=== PATIENT | female | born 1975 | race Caucasian/White ===

== ENCOUNTER 2019-01-21 23:28 | Emergency (ER) | payer BC, SELFPAY ==
[2019-01-21 23:29] VITALS: BP 158/90; PULSE 125; RESP 14; TEMP 36.8; O2SAT 94; BMI 34.6
--- NOTE | 2019-01-21 23:46 | EKG12_ITS ---
Test Reason : SUBSTANCE ABUSE Blood Pressure : / mmHG Vent. Rate : 116 BPM Atrial Rate : 116 BPM P-R Int : 142 ms QRS Dur : 074 ms QT Int : 344 ms P-R-T Axes : 049 -10 043 degrees QTc Int : 478 ms Sinus tachycardia Moderate voltage criteria for LVH, may be normal variant Borderline ECG Confirmed by KEIRA STARKS, NIMESH ([id number]), editorial project manager ZARA CARIAS ([id number]) on 01/24/2019 1:23:55 PM Referred By: EUGENIO Confirmed By:NIMESH CROCKETT MD
--- NOTE | 2019-01-21 23:48 | ED.DCSUM_ITS ---
History of Present Illness Chief Complaint: Substance Abuse Informant: Patient Narrative: EMS brings this patient in after she was apparently walking in traffic on a Wednesday night. Patient states she does not remember any of this, and is not suicidal. She remembers going to [employer] to buy a new headlight for her car. To EMS and nursing she initially denied using any drugs tonight, but she states now she remembers using methamphetamine by IV tonight, prior to going out. She does not remember a lot however. She does not remember drinking any alcohol or using any other substances. - Past Medical History (1) Endometriosis Status: Resolved Past Medical History - Allergies and Home Meds Allergies/Adverse Reactions: Allergies No Known Allergies Allergy (Verified 01/21/19 23:33) Primary Care Physician: Radha Rios NP-C [ALLIED HEALTH PROFESSIONAL] - Surgical History: hysterectomy, - - Laparoscopy Smoking Status: Current every day smoker Alcohol: None Drugs: - - IV drug use, methamphetamine Review of Systems General: Denies: Chills, Fever, Sweats Eyes: Denies: Visual changes - bilaterally, Diplopia ENT: Denies: Rhinorrhea, Sore throat Cardiovascular: Denies: Chest pain, Palpitations Respiratory: Denies: Dyspnea, Cough, Dyspnea on exertion Gastrointestinal: Reports: Nausea. Denies: Abdominal pain, Vomiting, Diarrhea, Melena, Hematochezia Genitourinary: Denies: Dysuria, Hematuria, Frequency Musculoskeletal: Denies: Back pain, Extremity Pain Skin: Denies: Rash, Wounds Neurological: Denies: Headache, Weakness, Numbness Physical Exam Vital Signs/Narrative: Vital Signs Temp Pulse Resp BP Pulse Ox 01/21/19 23:29 98.2 F 125 H 14 158/90 H 94 Inital Vital Signs reviewed: Yes General: Well nourished, Well developed, No Acute Distress Head: Normocephalic, Atraumatic Eyes: Perrl - 2-3mm, EOMI ENT: Moist mucous membranes, No rhinorrhea Neck: Supple, Nontender Cardiovascular: Regular rate, Regular rhythm, No murmurs Respiratory: No distress, CTA bilaterally, Chest nontender Abdomen: Soft, Nondistended, Normal bowel sounds, Tender - LLQ mild. Negative for: Guarding, Rebound tenderness Back: Nontender, Normal Inspection. Negative for: CVA tenderness, Spinal tenderness Extremities: Nontender, No edema Skin: Normal color, No rash, No Trauma Neurological: Alert, Oriented x3, Cranial nerves II-XII grossly intact, Normal Strength, Normal Sensation Psychological: Normal affect, Normal Mood Diagnostic/Tx/Re-eval Laboratory Results 01/21/19 01/21/19 01/21/19 00:10 00:10 00:10 WBC 6.0 RBC 4.05 L Hgb 12.0 Hct 35.6 L MCV 87.9 MCH 29.6 MCHC 33.7 RDW Std Deviation 40.8 RDW Coeff of [place] 12.9 Plt Count 223 MPV 11.9 Immature Gran % (Auto) 0.200 Neut % (Auto) 62.9 Lymph % (Auto) 27.6 [place] % (Auto) 5.9 Eos % (Auto) 2.4 Baso % (Auto) 1.0 Absolute Neuts (auto) 3.8 Absolute Lymphs (auto) 1.64 Nucleated RBC % 0 Sodium 142 Potassium 3.5 Chloride 108 H Carbon Dioxide 28.0 Anion Gap 6 BUN 13 Creatinine 0.97 Estim Creat Clear Calc 68.68 Est GFR (MDRD) Af Amer 81 Est GFR (MDRD) Non-Af 67 BUN/Creatinine Ratio 13.5 Glucose 124 H Calcium 8.6 Urine Opiates Screen Urine Methadone Screen Ur Barbiturates Screen Ur Phencyclidine Scrn Ur Amphetamines Screen U Methamphetamin-MDMA U Benzodiazepines Scrn Urine Cocaine Screen U Cannabinoids Screen Ur Drug Screen Comment Ethyl Alcohol < 3.0 01/22/19 01:35 WBC RBC Hgb Hct MCV MCH MCHC RDW Std Deviation RDW Coeff of [place] Plt Count MPV Immature Gran % (Auto) Neut % (Auto) Lymph % (Auto) [place] % (Auto) Eos % (Auto) Baso % (Auto) Absolute Neuts (auto) Absolute Lymphs (auto) Nucleated RBC % Sodium Potassium Chloride Carbon Dioxide Anion Gap BUN Creatinine Estim Creat Clear Calc Est GFR (MDRD) Af Amer Est GFR (MDRD) Non-Af BUN/Creatinine Ratio Glucose Calcium Urine Opiates Screen POSITIVE H Urine Methadone Screen NEGATIVE Ur Barbiturates Screen NEGATIVE Ur Phencyclidine Scrn NEGATIVE Ur Amphetamines Screen POSITIVE H U Methamphetamin-MDMA POSITIVE H U Benzodiazepines Scrn NEGATIVE Urine Cocaine Screen NEGATIVE U Cannabinoids Screen NEGATIVE Ur Drug Screen Comment Ethyl Alcohol - Rhythm Strip Rhythm Strip: Sinus Tach Rate: 120 Ectopy: None - EKG Initial EKG Interpretation: No Acute Injury Pattern, Sinus Tachycardia - Medical Decision Making Patient was observed for several hours, her vital signs normalized, her tachycardia resolved, her toxicology shows multiple substances, mostly opiates and methamphetamine. Her alcohol is negative. Her is here and wants to take her home and I think that is reasonable at this time. ED Disposition - Plan for ED Patient: Disposition: Home or Assisted Living Diagnosis: Polysubstance abuse Instructions: Drug Abuse Referrals: Radha Rios NP-C [ALLIED HEALTH PROFESSIONAL] - [facility] [STAFF PHYSICIAN] - As soon as possible
[2019-01-22] MEDS: proMETHazine 25 MG/ML Syringe 6.25 MG IV (00:22)
[2019-01-22] MEDS: 0.9% Normal Saline 1,000 ML 999 ML IV (00:22)
[2019-01-22 00:27] LABS: Absolute Lymphocyte Count 1.64 X10^3/uL (0.83-4.51); Absolute Neutrophil Count 3.8 X10^3/uL (2.0-7.7); Basophil# 0.06 X10^3/uL; Eosinophil# 0.14 X10^3/uL; Eosinophils% 2.4 % (0-5); Hematocrit 35.6 % (37-47); Lymphocyte # 1.64 X10^3/ul (4.0); Lymphocyte % 27.6 % (19-41); Mean Corp Hgb Conc 33.7 g/dL (32-36); Mean Corpuscular Hgb 29.6 pg (27.0-32.0); Mean Corpuscular Volume 87.9 fL (81-99); Mean Platelet Vol. 11.9 fl (6.2-12.0); Monocyte# 0.35 X10^3/uL; Monocyte% 5.9 % (0-10); NRBC Flagged by Analyzer 0 % (0-5); Neutrophil # 3.75 X10^3/uL (2.7-7.7); Neutrophil % 62.9 % (47-70); Platelet Count 223 K/mm3 (150-450); RBC Distribution Width CV 12.9 % (11.6-14.6); RBC Distribution Width SD 40.8 fl (35.1-43.9); Red Blood Count 4.05 M/mm3 (4.2-5.4)
[2019-01-22 00:36] LABS: Anion Gap 6 (5-15); BUN 13 mg/dL (7-18); BUN/Creat Ratio 13.5 RATIO (10-20); Calcium,Total 8.6 mg/dL (8.5-10.1); Chloride 108 mmol/L (98-107); Creatinine, Serum 0.97 mg/dL (0.55-1.02); EST Glomerular Filtration Rate 67 mL/min (>60); Est Glom Filt Rate - Afr Amer 81 mL/min (>60); Estimated Creatinine Clearance 68.68 ml/min; Glucose 124 mg/dL (74-106); Potassium 3.5 mmol/L (3.5-5.1); Sodium Level 142 mmol/L (136-145)
[2019-01-22 00:47] LABS: Alcohol, Blood (Medical)-Serum < 3.0 mg/dL
[2019-01-22 01:00] VITALS: BP 121/79; PULSE 96; RESP 14; O2SAT 99
[2019-01-22 02:01] LABS: Amphetamine Urine VISTA POSITIVE (<1000 ng/mL); Barbiturate Urine VISTA NEGATIVE (< 200 ng/mL); Benzodiazepine Urine VISTA NEGATIVE (< 200 ng/mL); Cocaine Urine VISTA NEGATIVE (< 300 ng/mL); Ecstacy Urine VISTA POSITIVE (< 500 ng/mL); Methadone Urine VISTA NEGATIVE (< 300 ng/mL); PCP Urine VISTA NEGATIVE (< 25 ng/mL); THC Urine VISTA NEGATIVE (< 50 ng/mL); Vista UDS pH Range 5
[2019-01-22 02:30] VITALS: BP 116/72; PULSE 93; RESP 15; O2SAT 98
[2019-01-22 03:20] VITALS: BP 104/52; PULSE 90; RESP 17; O2SAT 96
== END 2019-01-22 03:21 | disposition home or self-care (01) ==
PROVIDERS: Emergency Provider Emergency Medicine
DX: F15.10 Other stimulant abuse, uncomplicated (principal); F11.10 Opioid abuse, uncomplicated; F17.200 Nicotine dependence, unspecified, uncomplicated
CPT/HCPCS: 80048; 80307; 80320; 85025; 93005; 96361; 96374; 99285; J7030; G0480

== ENCOUNTER 2019-08-26 13:32 | Emergency (ER) | payer SELFPAY ==
[2019-08-26 13:33] VITALS: BP 147/72; PULSE 100; RESP 18; TEMP 37.2; O2SAT 100; BMI 29.1
[2019-08-26 13:36] VITALS: BP 147/72; PULSE 100; RESP 18; TEMP 37.2; O2SAT 100
--- NOTE | 2019-08-26 13:40 | EKG12_ITS ---
Test Reason : SOB Blood Pressure : / mmHG Vent. Rate : 094 BPM Atrial Rate : 094 BPM P-R Int : 132 ms QRS Dur : 076 ms QT Int : 374 ms P-R-T Axes : 056 -10 003 degrees QTc Int : 467 ms Normal sinus rhythm Moderate voltage criteria for LVH, may be normal variant Nonspecific T wave abnormality Prolonged QT Abnormal ECG Confirmed by KEIRA STARKS, NIMESH ([id number]), proposal editor ZARA CARIAS ([id number]) on 08/29/2019 8:36:07 AM Referred By: REMEDIOS Confirmed By:NIMESH CROCKETT MD
--- NOTE | 2019-08-26 13:40 | RAD_ITS ---
STUDY: X-RAY CHEST REASON FOR EXAM: Female, 44 years old. COUGH, PAIN WHEN BREATHING TECHNIQUE: Frontal and lateral views COMPARISON: None. FINDINGS: The lungs are clear and expanded. There is no demonstrated pleural abnormality. Normal size heart. Normal mediastinum and connor. Normal visualized pulmonary arteries. Normal visualized aortic arch and descending thoracic aorta. Degenerative changes of the thoracic spine. Normal visualized ribs, clavicles, and shoulders. There is no demonstrated abnormality of the visualized soft tissue structures of the upper abdomen. RAD/Chest PA and Lateral IMPRESSION: Normal x-ray examination of the chest. Electronically Signed: Chance Dyson DO at 14:46 EDT Tel [phone], Service support ,
--- NOTE | 2019-08-26 13:48 | ED.DCSUM_ITS ---
History of Present Illness Chief Complaint: General Illness Narrative: Coronavirus national emergency and affect patient no exposures The patient presents complaining of 1 to 2 days of harsh coughing body ache temperatures to 103 persisted into today and she came in for evaluation she has no exposures to the coronavirus, she denies a past history, no history of cardiopulmonary disease or any type of disorder she is on no home medications denies smoking she is able to eat and drink bowel bladder habits been normal the cough is generally dry minimally productive she lives with her and son who are not ill does not work Past Medical History - Allergies and Home Meds Allergies/Adverse Reactions: Allergies No Known Allergies Allergy (Verified 08/26/19 13:37) Primary Care Physician: Monika Slade [NON-STAFF] - Care Physician,No Primary [Primary Care Provider] - Past Medical History: None Surgical History: hysterectomy, - - Laparoscopy Smoking Status: Current every day smoker Review of Systems General: Reports: Fever. Denies: Chills, Sweats Eyes: Denies: Visual changes - bilaterally, Diplopia ENT: Denies: Rhinorrhea, Sore throat Cardiovascular: Denies: Chest pain, Palpitations Respiratory: Reports: Dyspnea, Cough. Denies: Dyspnea on exertion Gastrointestinal: Denies: Abdominal pain, Nausea, Vomiting, Diarrhea, Melena, Hematochezia Genitourinary: Denies: Dysuria, Hematuria, Frequency Musculoskeletal: Denies: Back pain, Extremity Pain Skin: Denies: Rash, Wounds Neurological: Denies: Headache, Weakness, Numbness Physical Exam Vital Signs/Narrative: Vital Signs Temp Pulse Resp BP Pulse Ox 08/26/19 13:36 99 F 100 18 147/72 H 100 08/26/19 13:33 99 F 100 18 147/72 H 100 General: Well nourished, Well developed, No Acute Distress, - - She is febrile here to 99 her pulse ox 100% on room air she is speaking in full sentences in no distress dry cough Head: Normocephalic, Atraumatic Eyes: Perrl, EOMI ENT: Moist mucous membranes, No rhinorrhea Neck: Supple, Nontender Cardiovascular: Regular rate, Regular rhythm, No murmurs Respiratory: No distress, CTA bilaterally, Chest nontender Abdomen: Soft, Nontender, Nondistended, Normal bowel sounds Back: Nontender, Normal Inspection Extremities: Nontender, No edema Skin: Normal color, No rash Neurological: Alert, Oriented x3, Cranial nerves II-XII grossly intact, Normal Strength, Normal Sensation Psychological: Normal affect, Normal Mood Diagnostic/Tx/Re-eval - Medical Decision Making At this time given all the above and the coronavirus national emergency she will undergo coronavirus protocol with flu testing handheld nebulizer chest x-ray la bs IV fluids Toradol for the body ache The patient screening ED evaluation was unremarkable, EKG shows a sinus rhythm nothing acute chest x-ray unremarkable, coronavirus protocol flu RSV screens are both negative patient is feeling better I discussed all the above with her we discussed the concept of viral illness coronavirus exposure or illness, she does not meet criteria for admission she is comfortable discharge home at this time she will follow with the coronavirus instruction sheet, including self quarantine for 14 days, contact the department of health for further management options testing options therapy options and return for change in symptoms, she will be discharged with Proventil inhaler Tylenol Motrin for body aches and she will return for change in her symptoms Home stable Final impression harsh cough with body aches likely viral illness ED Disposition - Plan for ED Patient: Diagnosis: Viral upper respiratory illness Prescriptions: Naproxen [Naprosyn] 500 mg PO BID PRN #20 tab Prescription Printed Albuterol Inhaler [Ventolin Hfa] 1 - 2 puff INHALATION Q4H PRN PRN #1 inhaler PRN Reason: Wheezing Prescription Printed Referrals: Care Physician,No Primary [Primary Care Provider] - Monika Slade [NON-STAFF] -
[2019-08-26] MEDS: Acetaminophen 500 MG Tablet 1000 MG PO (14:18)
[2019-08-26] MEDS: 0.9% Normal Saline 1,000 ML 999 ML IV (14:18)
[2019-08-26] MEDS: Ketorolac 30 MG/ML Syringe IV (14:18)
[2019-08-26 14:26] LABS: Absolute Lymphocyte Count 2.54 X10^3/uL (0.83-4.51); Absolute Neutrophil Count 8.5 X10^3/uL (2.0-7.7); Basophil# 0.02 X10^3/uL; Basophil% 0.2 % (0-1); Eosinophil# 0.05 X10^3/uL; Eosinophils% 0.4 % (0-5); Hematocrit 31.5 % (37-47); Hemoglobin 10.5 g/dL (12.0-15.0); Lymphocyte # 2.54 X10^3/ul (4.0); Lymphocyte % 21.6 % (19-41); Mean Corp Hgb Conc 33.3 g/dL (32-36); Mean Corpuscular Hgb 29.5 pg (27.0-32.0); Mean Corpuscular Volume 88.5 fL (81-99); Mean Platelet Vol. 9.6 fl (6.2-12.0); Monocyte# 0.57 X10^3/uL; Monocyte% 4.8 % (0-10); NRBC Flagged by Analyzer 0 % (0-5); Neutrophil # 8.53 X10^3/uL (2.7-7.7); Neutrophil % 72.4 % (47-70); Platelet Count 243 K/mm3 (150-450); RBC Distribution Width CV 14.4 % (11.6-14.6); RBC Distribution Width SD 46.6 fl (35.1-43.9); Red Blood Count 3.56 M/mm3 (4.2-5.4); White Blood Count 11.8 K/mm3 (4.4-11.0)
[2019-08-26 14:36] VITALS: BP 120/82; PULSE 108; RESP 20; TEMP 37.1; O2SAT 98
[2019-08-26 14:43] LABS: Anion Gap 6 (5-15); BUN 7 mg/dL (7-18); BUN/Creat Ratio 11.1 RATIO (10-20); Calcium,Total 8.1 mg/dL (8.5-10.1); Chloride 105 mmol/L (98-107); Creatinine, Serum 0.63 mg/dL (0.55-1.02); EST Glomerular Filtration Rate 110 mL/min (>60); Est Glom Filt Rate - Afr Amer 133 mL/min (>60); Estimated Creatinine Clearance 104.68 ml/min; Glucose 124 mg/dL (74-106); Sodium Level 140 mmol/L (136-145)
[2019-08-26 14:49] LABS: BNP,B-Type NATRIURETIC PEPTIDE 60.2 pg/mL (0-100)
[2019-08-26 15:19] VITALS: BP 114/73; PULSE 107; RESP 20; TEMP 37.1; O2SAT 98
== END 2019-08-26 15:20 | disposition home or self-care (01) ==
PROVIDERS: Emergency Provider Emergency Medicine
DX: J06.9 Acute upper respiratory infection, unspecified (principal); F17.200 Nicotine dependence, unspecified, uncomplicated
CPT/HCPCS: 71046; 80048; 83880; 84484; 85025; 87804; 87807; 93005; 94640; 96361; 96374; 99285; J7030; A4216